=== PATIENT | female | born 1995 | race Caucasian/White ===

== ENCOUNTER 2024-10-04 15:45 | Emergency (ER) | payer OTHER, SELFPAY ==
[2024-10-04 16:03] VITALS: BP 127/84
[2024-10-04 16:31] LABS: % Basophils 0.6 % (0-2); % Eosinophils 1.2 % (0-6); % Immature Granulocytes 0.2 % (0-0.5); % Lymphocytes 19.1 % (20.5-51.1); % Monocytes 6.2 % (1.7-9.3); % Neutrophils 72.7 % (42.2-75.2); Absolute Basophils 0.1 10^3/uL (0-0.2); Absolute Eosinophils 0.1 10^3/uL (0-0.7); Absolute Lymphocytes 1.9 10^3/uL (1.2-3.4); Absolute Monocytes 0.6 10^3/uL (0.1-0.6); Absolute Neutrophils 7.2 10^3/uL (1.4-6.5); Hematocrit 37.2 % (37.0-47.0); Mean Corp Hgb Conc. 32.3 g/dL (33.0-37.0); Mean Corpuscular Hgb 25.4 pg (27.0-31.0); Mean Corpuscular Volume 78.6 fL (81.0-99.0); Mean Platelet Volume 8.6 fL (7.4-10.4); Nucleated Red Blood Cells % 0 %; Platelet Count 243 10^3/uL (130-400); Red Blood Cell Count 4.73 10^6/uL (4.20-5.40); Red Cell Dist. Width 14.4 % (11.5-14.5); White Blood Cell Count 9.9 10^3/uL (4.8-10.8)
[2024-10-04 16:42] LABS: HCG, Serum Qualitative Screen Negative
[2024-10-04 16:45] LABS: ALT (SGPT) 21 U/L (0-35); AST (SGOT) 20 U/L (14-36); Albumin 4.6 g/dl (3.5-5.0); Alkaline Phosphatase 84 U/L (38-126); Blood Urea Nitrogen 11 mg/dl (7-17); Calcium 9.6 mg/dl (8.4-10.2); Carbon Dioxide 22 mmol/L (22-30); Chloride 103 mmol/L (98-107); Glucose 86 mg/dl (70-99); Potassium 4.1 mmol/L (3.5-5.1); Sodium 136 mmol/L (135-145); Total Bilirubin 0.2 mg/dl (0.2-1.3); Total Protein 7.4 g/dl (6.3-8.2); eGFR > 60.00
[2024-10-04 16:56] LABS: Troponin I < 0.012 ng/ml
[2024-10-04 19:55] VITALS: BP 140/105
[2024-10-04 20:00] VITALS: BP 150/102
[2024-10-04 20:22] VITALS: BMI 35.5
--- NOTE | 2024-10-04 20:52 | ED.GENMED ---
History of Present Illness
General
Chief Complaint: Chest Pain
Source: patient
Exam Limitations: none
Time Seen by Provider: 10/04/24 20:39
History of Present Illness
History of Present Illness:
This is a 29 year old female that comes in with c/o chest pain and SOB. States that this started today when she was at a [employer]. Staes that she has been sick for a couple of months. States that on Aug 11 she started with the SOB and chest
pain. States that the pain is at the lower sternum and spreads out. States that she has had low grade fever since then and is very fatigued. States that she feels SOB today, headache and dizziness. Denies any fever, chills, abd pain, nausea,
vomiting, diarrhea, urinary burning.
Past History
Past History
ED Past Medical History: Asthma, Cancer (Bladder CA), Fibromyalgia and Other (Elhers danlos syndrome, POTS, celiac)
ED Past Surgical History: Gynecological (Ovarian cyst removed), Tonsilectomy (and adenoids) and Other (Breast reduction, )
Social History
Tobacco: Former smoker
Alcohol: None
Personal:
Living: alone
Review of Systems
Review of Systems
All Other Systems: ROS reviewed and negative except as documented in HPI and ROS
Constitutional: Reports fever (Low grade for months) and fatigue; Denies chills
EENT: Reports no symptoms
Respiratory: Reports trouble breathing; Denies cough
Cardiac: Reports chest pain
ABD/GI: Reports no symptoms; Denies abdominal pain, nausea, vomiting or diarrhea
: Reports no symptoms; Denies dysuria, frequency or urgency
Musculoskeletal: Reports no symptoms
Skin: Reports no symptoms
Neurological: Reports dizzy and headache
Psychiatric: Reports no symptoms
Phy Exam
General Physical Exam
General Presentation: well appearing and no apparent distress
General age: appears stated age
General Skin: warm and dry
General Habitus: normal
General Mental: alert
General Hydration: dry mucous membranes
ENT Exam
ENT Exam: TM's normal, pharynx normal and neck supple
Eye Exam
Eye Exam: EOMI
Cardiovascular Exam
Cardiovascular Exam: regular rate/rhythm, no edema, no murmur and normal peripheral pulses
Pulmonary Exam
Pulmonary Exam: lungs clear, no respiratory distress, no rales, chest non tender, no crackles, no rhonchi, no wheezing and no cough
Gastrointestinal Exam
Gastrointestinal Exam: normal bowel sounds, soft, no organomegaly, no pulsatile mass, non distended and tender (Slight Epigastric tenderness with palpation)
Musculoskeletal Exam
Musculoskeletal Exam: full ROM and no edema
Skin Exam
Skin Exam: normal color, warm/dry, no rash and no petechia
Scores
Heart Score for Chest Pain Patients
STEMI patient?: No
History: Slightly or Non-Suspicious
ECG: Normal
Age: </= 45 years
Risk Factors: No Risk Factors
Troponin: </= Normal Limit
Heart Score for Chest Pain Patients: 0
Heart Score Risk: 2.5% MACE over next 6 weeks
Course
Orders/Labs/Results
Orders:
Orders
10/04/24 15:48
Electrocardiogram (*1) Urgent
Reason for Study: Shortness of Breath
EKG- Treatment ONCE
10/04/24 16:08
Test Result ONCE
CR Chest - 2 Views Urgent
Comment:
Reason For Exam: respiratory distress
10/04/24 16:19
Complete Blood Count/With Diff Urgent
Comprehensive Metabolic Panel Urgent
HCG, Serum Qualitative Screen Urgent
Comment: Notify provider if positive test present
Troponin I Urgent
Abnormal Lab Results
10/04/24
16:19
MCV 78.6 L fL
(81.0-99.0)
MCH 25.4 L pg
(27.0-31.0)
MCHC 32.3 L g/dL
(33.0-37.0)
Absolute Neuts (auto) 7.2 H 10^3/uL
(1.4-6.5)
Lymphocytes % 19.1 L %
(20.5-51.1)
10/04/24 16:19
10/04/24 16:19
Labs unremarkable. Troponin <0.012, HCG negative,
Vital Signs
Initial and Last Documented VS:
Initial Vital Signs
Temp Pulse Resp BP Pulse Ox
99 F 104 22 127/84 100
10/04/24 16:03 10/04/24 16:03 10/04/24 16:03 10/04/24 16:03 10/04/24 16:03
Last Documented Vital Signs
Temp Pulse Resp BP Pulse Ox
99 F 89 10 150/102 98
10/04/24 16:03 10/04/24 20:15 10/04/24 20:15 10/04/24 20:00 10/04/24 20:15
MDM/Problems Addressed
Differential Diagnosis Includes:
GERD, Anxiety
MDM/Problems Addressed:
This is a 29 year old female that comes in with c/o SOB and chest pain. States that this started in July and she has had a low grade fever since. States that she does take Nexium daily.
Will check labs, Chest x-ray.
Explained to patient that her blood work is normal along with the Troponin and Chest x-ray. This may all be related to reflux. Will have patient increased her Nexium to twice daily. Patient to follow up with the family doctor. Return with any
concerns.
Chronic conditions affecting care:
Fibroymalgia POTS
Chronic conditions affecting care: Asthma
Acute Exacerbation and/or Progression of Chronic Illness:
NA
*Radiology
Radiology exam reviewed: preliminary read by ED provider (CHEST-negative for active disease)
*Pulse Oximetry
Patient hypoxic: no
*EKG
Interpreted by ED Provider?: Yes
Heart Rate: 108
Rate: tachycardiac
Rhythm: sinus
Hurst: normal axis
Interval: normal interval
QRS Pattern: normal QRS
Ischemia: no ischemia
*[employer] Salesperson Interpretation
Rate: [employer] Salesperson- N/A
*Critical Care Note
Total Time (30-74mins, 75-104mins- exclusive of procedures): Not Applicable
ED Attending Note
-
Portions of this chart may have been created with voice recognition software.� Occasional wrong word or��sound alike� substitutions may have occurred due to the inherent limitations of voice recognition software.
Discharge Plan
Departure
Patient Disposition: Home (Routine Discharge)
Date of Disposition: 10/04/24
Time of Disposition: 21:00
Patient with high blood pressure during this ER visit?: Yes
Condition: Good
Covid-19: Not Applicable
Discharge Problem:
Chest pain due to GERD, SOB (shortness of breath)
Instructions: Acid reflux and GERD in adults, Shortness of breath in adults - ED discharge instructions, BLOOD PRESSURE
Activity Restrictions/Additional Instructions:
As discussed, your blood work is normal. Your chest x-ray is normal. This may all be due to reflux. Please try increasing your Nexium to twice daily. Follow up with the GI specialist and your family doctor for further evaluation. There may also be
a component of anxiety. IF YOU HAVE ANY OTHER CONCERNS PLEASE RETURN TO THE EMERGENCY ROOM.
Interventions
Interventions:
*Risk Screen - Suicide Last Done: 10/04/24 16:03
*General Assessment Last Done: 10/04/24 20:14
*Neglect/Abuse Screening Last Done: 10/04/24 16:03
ED- Fall Risk Assessment Last Done: 10/04/24 20:14
*ED COVID-19 Vaccine History Last Done: 10/04/24 20:14
ED- Cardiac Assessment Last Done: 10/04/24 20:14
Discharge Date and Time
Print Language: CONGOLESE
[2024-10-04 21:20] VITALS: BP 127/83
== END 2024-10-04 21:20 | disposition home or self-care (01) ==
LOC: EMR 15:45
PROVIDERS: Physician Assistant Medical; EMERGENCY PHYSICIAN Emergency Medicine
DX: R07.89 Other chest pain (principal); R06.02 Shortness of breath; R50.9 Fever, unspecified; R51.9 Headache, unspecified; R42 Dizziness and giddiness; R53.83 Other fatigue; K21.9 Gastro-esophageal reflux disease without esophagitis; R03.0 Elevated blood-pressure reading, without diagnosis of hypertension; M79.7 Fibromyalgia; Q79.60 Ehlers-Danlos syndrome, unspecified; G90.A Postural orthostatic tachycardia syndrome [POTS]; K90.0 Celiac disease; J45.909 Unspecified asthma, uncomplicated; Z85.51 Personal history of malignant neoplasm of bladder; Z87.891 Personal history of nicotine dependence; Z79.899 Other long term (current) drug therapy
CPT/HCPCS: 99283; 71046; 80053; 84484; 84703; 85025; 93005